=== PATIENT | male | born 1985 | race Hispanic/Latino ===

== ENCOUNTER 2021-06-13 12:15 | Emergency (ER) | payer SELFPAY ==
[2021-06-13] MEDS ORDERED: Boostrix 0.5 ML (Tdap) VIAL ONE (12:39)
[2021-06-13] MEDS ORDERED: Lidocaine 2% MPF 10 ML AMP (For Epidural Use) ONE (13:34)
[2021-06-13] MEDS ORDERED: Bacitracin 1 PK ONE ×2 (14:17→14:19)
== END 2021-06-13 14:55 | disposition home or self-care (01) ==
LOC: CSHERS 12:15 → EDBD 12:15 → CSHERS 14:55
DX: S61.012A Laceration without foreign body of left thumb without damage to nail, initial encounter (principal); F17.210 Nicotine dependence, cigarettes, uncomplicated; W26.0XXA Contact with knife, initial encounter
CPT/HCPCS: 12002; 90471; 90715

== ENCOUNTER 2021-11-19 23:25 | Emergency (ER) | payer OTHER, SELFPAY ==
[2021-11-20] MEDS ORDERED: Lidocaine 1% (PF) 30 ML VIAL ONE (01:47)
== END 2021-11-20 03:05 | disposition home or self-care (01) ==
LOC: CSHERS 23:25
DX: S01.81XA Laceration without foreign body of other part of head, initial encounter (principal); W01.10XA Fall on same level from slipping, tripping and stumbling with subsequent striking against unspecified object, initial encounter; F17.210 Nicotine dependence, cigarettes, uncomplicated
CPT/HCPCS: 12011; 70450; 72125; J2001